=== PATIENT | male | born 1965 ===

== ENCOUNTER 2018-11-10 09:13 | Outpatient (CLI) | payer OTHER ==
[~2018-11-10] VITALS: Ht 152.4 cm; Wt 89.8 kg
== END 2018-11-10 15:22 | disposition home or self-care (01) ==
LOC: OFIC 805 09:13
DX: H71.02 Cholesteatoma of attic, left ear (principal); H70.13 Chronic mastoiditis, bilateral; H90.6 Mixed conductive and sensorineural hearing loss, bilateral; J31.0 Chronic rhinitis; J34.2 Deviated nasal septum; H69.83 Other specified disorders of Eustachian tube, bilateral; H61.32 Acquired stenosis of external ear canal secondary to inflammation and infection